=== PATIENT | female | born 1980 | race Hispanic/Latino ===

== ENCOUNTER 2017-05-01 03:17 | Observation (INO) | payer BC ==
[2017-05-01 03:28] VITALS: BMI 21.4
[2017-05-01] MEDS: Sodium Chloride 0.9% 1,000 ML IV SCH ×4 (03:43→11:39)
--- NOTE | 2017-05-01 03:47 | ED PDOC ---
HPI: Abdomen Time Seen by Provider: 05/01/17 03:28 Chief Complaint (Nursing): Abdominal Pain Chief Complaint (Provider): Abdominal Pain History Per: Patient History/Exam Limitations: no limitations Onset/Duration Of Symptoms: Hrs (x3) Current Symptoms Are (Timing): Still Present Additional Complaint(s): 36 year old female with previous medical history of kidney stones, who presents to the emergency department with a complaint of left-sided flank pain radiating to left-sided abdomen associated with nausea ongoing since midnight. Denied any fever, chills, vomiting, difficulty urinating or bloody urine. Patient reported last episode of kidney stones were 1 1/2 years ago. PMD: none provided Past Medical History Reviewed: Historical Data, Nursing Documentation, Vital Signs Vital Signs: Last Vital Signs Temp 98.3 F 05/01/17 03:28 Pulse 80 05/01/17 03:28 Resp 18 05/01/17 03:28 BP 149/90 05/01/17 03:28 Pulse Ox 100 05/01/17 05:38 - Medical History PMH: Kidney Stones - Surgical History Surgical History: Hernia Repair Denies: No Surg Hx - Family History Family History: States: Unknown Family Hx - Social History Current smoker - smoking cessation education provided: No Alcohol: None Drugs: Denies - Allergies Allergies/Adverse Reactions: Allergies Allergy/AdvReac Type Severity Reaction Status Date / Time amoxicillin Allergy Intermediate ITCHING Verified 05/01/17 03:58 Review of Systems ROS Statement: Except As Marked, All Systems Reviewed And Found Negative Constitutional: Negative for: Fever, Chills Gastrointestinal: Positive for: Nausea, Abdominal Pain (left-sided). Negative for: Vomiting, Diarrhea Genitourinary Female: Negative for: Dysuria, Hematuria Musculoskeletal: Positive for: Back Pain (left flank) Physical Exam - Reviewed Nursing Documentation Reviewed: Yes Vital Signs Reviewed: Yes - Physical Exam Appears: Positive for: In Acute Distress (moderate). Negative for: No Acute Distress Head Exam: Positive for: ATRAUMATIC, NORMAL INSPECTION, NORMOCEPHALIC Skin: Positive for: Normal Color Eye Exam: Positive for: Normal appearance ENT: Positive for: Normal ENT Inspection Neck: Positive for: Normal, Painless ROM Cardiovascular/Chest: Positive for: Regular Rate, Rhythm, Chest Non Tender Respiratory: Positive for: Normal Breath Sounds, Decreased Breath Sounds. Negative for: Wheezing, Respiratory Distress Gastrointestinal/Abdominal: Positive for: Tenderness (left upper and lower quadrants moderately). Negative for: Normal Exam Back: Positive for: L CVA Tenderness. Negative for: Normal Inspection, R CVA Tenderness Extremity: Positive for: Normal ROM (upper/lower). Negative for: Pedal Edema ( bilateral), Calf Tenderness (bilateral) Neurologic/Psych: Positive for: Alert (x3), Oriented - Laboratory Results Result Diagrams: 05/01/17 03:53 05/01/17 03:53 - ECG O2 Sat by Pulse Oximetry: 100 (RA) Pulse Ox Interpretation: Normal Medical Decision Making Medical Decision Making: Initial Impression: Flank pain; Abdominal pain Initial Plan: * CT ABD/pelvis without contrast * CMP * Lipase * Urine * CBC * NS 1,000ml IV per 1,000mls/hr * Toradol 30mg IVP * Zofran inj 4mg PO * Urine culture * Urine * Urinalysis ____ Lab results reviewed : wbc 16.7, CMP wnl, UA still pending. Patient reports no improvement of symptoms after being given toradol IV. Morphine 4 mg IV ordered. Patient sent to CT. Time: 448 --CT ABD/pelvis FINDINGS: Lower thorax: Small hiatal hernia. ABDOMEN: Liver: Unremarkable. Gallbladder and bile ducts: Unremarkable. No calcified stones. No ductal dilation. Pancreas: Unremarkable. No ductal dilation. Spleen: Unremarkable. No splenomegaly. Adrenals: Unremarkable. No mass. Kidneys and ureters: Left-sided hydronephrosis and hydroureter is identified ending into the pelvis to a 5 mm calculus at the junction of the ureter and UVJ seen on image 80, causing obstruction. Stomach and bowel: Unremarkable. No obstruction. No mucosal thickening. Appendix: No findings to suggest acute appendicitis. PELVIS: Bladder: Unremarkable. No stones. Reproductive: Unremarkable as visualized. ABDOMEN and PELVIS: Intraperitoneal space: Sliver of free fluid in the pelvis is probably physiologic. No free air. Bones/joints: No acute fracture. No dislocation. Soft tissues: Unremarkable. Vasculature: Unremarkable. No abdominal aortic aneurysm. Lymph nodes: Unremarkable. No enlarged lymph nodes. IMPRESSION: Left-sided hydronephrosis and hydroureter is identified ending into the pelvis to a 5 mm calculus at the junction of the ureter and UVJ seen on image 80, causing obstruction Patient returned from CT, results still pending. Patient reports that her pain is recurring, she is in moderate painful distress. Given another dose of morphine 4 mg IV and zofran 4 mg IV. Diagnostic results d/w the patient and her significant other in great detail. Diagnosis of renal colic with obstruction d/w the patient. Patient given flomax PO. Based on history, exam and diagnostic results, plan will be for further inpatient treatment. Case d/w Dr. Gauthier, agrees with inpt admission under the hospitalist and to keep the patient NPO, he will see her this AM. Case d/w Dr. Mooney the hospitalist , will admit the patient. Patient and her significant other agrees with and understand further plan of care. I have given the patient opportunity to ask any additional questions. Scribe Attestation: Documented by Melissa Stauffer, acting as a scribe for Anais Urbina PA-C. Provider Scribe Attestation: All medical record entries made by the Scribe were at my direction and personally dictated by me. I have reviewed the chart and agree that the record accurately reflects my personal performance of the history, physical exam, medical decision making, and the department course for this patient. I have also personally directed, reviewed, and agree with the discharge instructions and disposition. Disposition - Clinical Impression Clinical Impression: Renal colic on left side, Obstructive uropathy - Patient ED Disposition Is Patient to be Admitted: Yes Counseled Patient/Family Regarding: Studies Performed, Diagnosis - Disposition Disposition Time: 05:07 Condition: STABLE Forms: [facility] (Macedonian) - Pt Status Changed To: Hospital Disposition Of: Inpatient (.) - Admit Certification Admit to Inpatient:: After my assessment, the patient will require hospitalization for at least two midnights. This is because of the severity of symptoms shown, intensity of services needed, and/or the medical risk in this patient being treated as an outpatient.
[2017-05-01 03:57] LABS: BASO % 0.3 % (0.0-2.0); EOS % 0.3 % (0.0-4.0); LYMPH # 1.7 K/uL (1.0-4.3); LYMPH % 9.9 % (20.0-40.0); MEAN CELL VOLUME 89.7 fl (81.0-99.0); MEAN CORPUSCULAR HEMOGLOBIN 31.4 pg (27.0-31.0); MEAN PLATELET VOLUME 8.1 fl (7.2-11.7); MONO # 0.7 K/uL (0.0-0.8); MONO % 4.4 % (0.0-10.0); NEUT # 14.2 K/uL (1.8-7.0); NEUT % 85.1 % (50.0-75.0); NRBC % 0.1 % (0.0-0.0); PLATELET COUNT 207 K/uL (130-400); RBC 4.47 Mil/uL (3.80-5.20); RED CELL DISTRIBUTION WIDTH 11.9 % (11.5-14.5); WHITE BLOOD COUNT 16.7 K/uL (4.8-10.8)
[2017-05-01] MEDS ORDERED: Morphine 4 MG/ML VIAL ONE ×3 (04:04→08:08)
[2017-05-01] MEDS ORDERED: Morphine 4 MG/ML VIAL IVP ONE ×2 (04:04→05:00)
[2017-05-01 04:05] LABS: ALB/GLOB RATIO 1.3 (1.0-2.1); ALBUMIN 4.1 g/dL (3.5-5.0); ALT/SGPT 26 U/L (9-52); AST/SGOT 25 U/L (14-36); BLOOD UREA NITROGEN 19 mg/dl (7-17); CALCIUM 9.2 mg/dL (8.4-10.2); GFR AFRICAN-AMERICAN > 60; GFR NON-AFRICAN AMERICAN > 60; LIPASE 118 U/L (23-300)
[2017-05-01 04:32] LABS: EOSINOPHIL 1 % (0-7); LYMPHOCYTE 9 % (20-50); MONOCYTE 3 % (0-10); NEUTROPHIL 85 % (42-75); PLATELET ESTIMATE NORMAL (NORMAL); REACTIVE LYMPHOCYTES 2 % (0-0); TOTAL CELLS COUNTED 100
[2017-05-01 04:33] LABS: ANISOCYTOSIS SLIGHT; OVALOCYTES SLIGHT; POIKILOCYTOSIS SLIGHT
[2017-05-01 05:41] LABS: SQUAMOUS EPITHIAL 2 /hpf (0-5); URINE BACTERIA RARE (<OCC); URINE BILIRUBIN NEGATIVE (NEGATIVE); URINE BLOOD SMALL (NEGATIVE); URINE CLARITY SLIGHTY-CLOUDY (Clear); URINE COLOR STRAW (YELLOW); URINE GLUCOSE (UA) NEG (Normal); URINE LEUKOCYTE ESTERASE NEG Leu/uL (Negative); URINE NITRATE NEGATIVE (NEGATIVE); URINE PROTEIN NEGATIVE (NEGATIVE); URINE UROBILINOGEN 0.2-1.0 mg/dL (0.2-1.0)
[2017-05-01] MEDS ORDERED: Sodium Chloride 0.9% 1,000 ML IV SCH ×2 (06:00→11:41)
--- NOTE | 2017-05-01 06:08 | CP.PCM.HP ---
History of Present Illness - History of Present Illness History of Present Illness: CC: L flank pain HPI: This is a 36 y/o female with MHx of nephrolithiasis in the past who presented to the ER with c/o L sided flank pain with acute onset in the middle of the night. Pain radiated to L abdomen, and was accompanied by nausea. Patient denied f/c/v/d. Patient denies dysuria or hematuria. Nothing made symptoms better or worse. Last kidney stone was about 1.5 years ago. ROS: 14 systems reviewed, negative other than HPI MHx: Nephrolithiasis SHx: Hernia surgery Allergies: Amoxicillin Medications: None Family Hx: Reviewed, father with multiple kidney stones in the past Social Hx: Visiting from out of town, no tobacco, no EtOH Present on Admission - Present on Admission Any Indicators Present on Admission: No Past Patient History - Past Social History Alcohol: None Drugs: Denies - RENAL Hx Kidney Stones: Yes - MUSCULOSKELETAL/RHEUMATOLOGICAL Hx Back Pain: Yes - PSYCHIATRIC Hx Anxiety: Yes Hx Substance Use: No - SURGICAL HISTORY Hx Herniorrhaphy: Yes - ANESTHESIA Hx Anesthesia: Yes Meds Allergies/Adverse Reactions: Allergies Allergy/AdvReac Type Severity Reaction Status Date / Time amoxicillin Allergy Intermediate ITCHING Verified 05/01/17 03:58 Physical Exam - Constitutional Appears: No Acute Distress - Head Exam Head Exam: ATRAUMATIC, NORMOCEPHALIC - Eye Exam Eye Exam: EOMI, PERRL - ENT Exam ENT Exam: Mucous Membranes Moist - Neck Exam Neck exam: Positive for: Full Rom - Respiratory Exam Respiratory Exam: Clear to Auscultation Bilateral, NORMAL BREATHING PATTERN - Cardiovascular Exam Cardiovascular Exam: REGULAR RHYTHM, +S1, +S2 - GI/Abdominal Exam GI & Abdominal Exam: Normal Bowel Sounds, Soft - Extremities Exam Extremities exam: Positive for: full ROM, normal inspection - Back Exam Back exam: CVA tenderness (L) - Neurological Exam Neurological exam: Alert, CN II-XII Intact, Oriented x3 - Psychiatric Exam Psychiatric exam: Normal Affect, Normal Mood - Skin Skin Exam: Dry, Warm Results - Vital Signs Recent Vital Signs: Last Vital Signs Temp 98.3 F 05/01/17 03:28 Pulse 80 05/01/17 03:28 Resp 18 05/01/17 03:28 BP 149/90 05/01/17 03:28 Pulse Ox 100 05/01/17 06:01 - Labs Result Diagrams: 05/01/17 03:53 05/01/17 03:53 Labs: Laboratory Results - last 24 hr 05/01/17 05/01/17 05/01/17 03:53 03:53 05:30 WBC 16.7 H RBC 4.47 Hgb 14.0 Hct 40.1 MCV 89.7 MCH 31.4 H MCHC 35.0 RDW 11.9 Plt Count 207 MPV 8.1 Neut % (Auto) 85.1 H Lymph % (Auto) 9.9 L [place] % (Auto) 4.4 Eos % (Auto) 0.3 Baso % (Auto) 0.3 Neut # 14.2 H Lymph # 1.7 [place] # 0.7 Eos # 0.0 Baso # 0.0 Neutrophils % (Manual) 85 H Lymphocytes % (Manual) 9 L Reactive Lymphs % 2 H Monocytes % (Manual) 3 Eosinophils % (Manual) 1 Platelet Estimate Normal Poikilocytosis (manual Slight Anisocytosis (manual) Slight Ovalocytes Slight Sodium 141 Potassium 3.4 L Chloride 104 Carbon Dioxide 28 Anion Gap 12 BUN 19 H Creatinine 1.0 Est GFR ( Amer) > 60 Est GFR (Non-Af Amer) > 60 Random Glucose 123 H Calcium 9.2 Total Bilirubin 0.5 AST 25 ALT 26 Alkaline Phosphatase 60 Total Protein 7.1 Albumin 4.1 Globulin 3.0 Albumin/Globulin Ratio 1.3 Lipase 118 Urine Color Straw Urine Clarity Slighty-cloudy Urine pH 7.0 Ur Specific [place] 1.013 Urine Protein Negative Urine Glucose (UA) Neg Urine Ketones 20 Urine Blood Small Urine Nitrate Negative Urine Bilirubin Negative Urine Urobilinogen 0.2-1.0 Ur Leukocyte Esterase Neg Urine RBC (Auto) 10 H Urine Microscopic WBC 1 Ur Squamous Epith Cells 2 Urine Bacteria Rare - Imaging and Cardiology CT scan - abdomen Status: Image reviewed by me (L nephrolithiasis with hydroneph/hydroureter), Report reviewed by me Assessment & Plan (1) Obstructive uropathy Assessment and Plan: 36 y/o female with nephrolithiasis/urinary tract obstruction. -NPO, IVF -Pain mgmt per scale with Toradol/Morphine IV -Zofran IV for n/v -Flomax 0.4 daily -Consult with Urology (Abrahan) for possible procedure this AM -Replete K -SCDs for DVT PPx Status: Acute (2) Renal colic on left side Status: Acute (3) DVT prophylaxis Status: Acute
[2017-05-01] MEDS ORDERED: KCL 40MEQ/NS 1L 1,000 ML IV SCH (06:12)
[2017-05-01] MEDS: Morphine 4 MG/ML VIAL IVP PRN ×3 (08:14→22:00)
--- NOTE | 2017-05-01 11:02 | CT ---
PROCEDURE: CT Abdomen and Pelvis without intravenous contrast HISTORY: L flank pain COMPARISON: None. TECHNIQUE: Technique. Unenhanced study. Neither oral nor intravenous contrast administered. Radiation dose: Total exam DLP = 343.17 mGy-cm. This CT exam was performed using one or more of the following dose reduction techniques: Automated exposure control, adjustment of the mA and/or kV according to patient size, and/or use of iterative reconstruction technique. FINDINGS: LOWER THORAX: Unremarkable. LIVER: Unremarkable. No gross lesion or ductal dilatation. GALLBLADDER AND BILE DUCTS: Unremarkable. PANCREAS: Unremarkable. No gross lesion or ductal dilatation. SPLEEN: Unremarkable. ADRENALS: Unremarkable. No mass. KIDNEYS AND URETERS: Left kidney: Distended collecting system including left ureter. The left kidney is edematous, trace perinephric fluid identified. No visible upper tract calculi. Right kidney in ureter: Unremarkable VASCULATURE: Unremarkable. No aortic aneurysm. BOWEL: Constipation without fecal impaction or obstruction. APPENDIX: Unremarkable. Normal appendix. PERITONEUM: Unremarkable. No free fluid. No free air. LYMPH NODES: Unremarkable. No enlarged lymph nodes. BLADDER: Unremarkable.3.5 mm calculus in the urinary bladder adjacent to the right ureterovesical junction consistent with recently passed calculus. REPRODUCTIVE: Unremarkable. BONES: No acute fracture. OTHER FINDINGS: None. IMPRESSION: Recently passed calculus 3.5 mm now residing in the urinary bladder adjacent to the left ureterovesical junction. Left hydronephrosis, hydroureter noted. Concordant results (preliminary interpretation) provided by [employer] Procedure Completed: 04:30 Preliminary ([employer]Rad) Report: Dictated and Authenticated: 04:49 Final Interpretation: 11:00
[2017-05-01] MEDS ORDERED: cefTRIAXone IV 1 gm in Dextros 0 ML IVPB ONE (14:53)
[2017-05-01] MEDS ORDERED: Lidocaine 2% Jelly (Uro-Jet) ONE (14:54)
[2017-05-01] MEDS ORDERED: Propofol 10 mg/ml Inj (20 ML) ONE (14:55)
[2017-05-01] MEDS ORDERED: Iohexol 300 100 ML IJ ONE (14:55)
[2017-05-01] MEDS ORDERED: Midazolam 2 MG/2 ML VIAL ONE (14:56)
[2017-05-01] MEDS ORDERED: Lactated Ringer's 1,000 ML IV ONE (15:40)
[2017-05-01] MEDS ORDERED: Gentamicin 80 mg/2mL Inj. IVPB ONE (15:45)
[2017-05-01] MEDS ORDERED: Gentamicin 80mg/50ml NS 80 MG/50 ML BAG IVPB ONE ×2 (15:48→15:50)
--- NOTE | 2017-05-01 16:10 | PCM.SURG1 ---
Surgeon's Initial Post Op Note - Surgeon's Notes Surgeon: Abrahan Quality Control Associate: THOMAS Type of Anesthesia: General LMA Anesthesia Administered By: staff Pre-Operative Diagnosis: Left ureteral calculi/Hydronephrosis Operative Findings: left ureteral calculi @ ureteral orifice Post-Operative Diagnosis: same Operation Performed: cysto insertion of stent Specimen/Specimens Removed: na Estimated Blood Loss: EBL {In ML}: 0 Blood Products Given: N/A Drains Used: No Drains Post-Op Condition: Good Date of Surgery/Procedure: 05/01/17 Time of Surgery/Procedure: 16:11
[2017-05-01] MEDS ORDERED: HYDROmorphone 0.5 mg/0.5 ml ISec IVP PRN (16:22)
[2017-05-01] MEDS ORDERED: Dexamethasone 4 mg/1 ml IVP PRN (16:22)
--- NOTE | 2017-05-02 02:03 | OP ---
PROCEDURE DATE: 05/01/2017 PREOPERATIVE DIAGNOSES: Left renal colic and left ureterovesical junction calculi. POSTOPERATIVE DIAGNOSES: Left renal colic and left ureterovesical junction calculi. PROCEDURES: Cystoscopy, insertion of stent. DESCRIPTION OF PROCEDURE: The procedure is as follows: Prior to the procedure, detailed informed consent was obtained from the patient. The x-ray films and reports were reviewed and the patient's history of having significant pain after the CAT scan was done, indicating that the stone was still present. The patient agreed to proceed with the procedure. She was brought into the room and a timeout was taken according to the rules and regulations of [facility]. She was given prophylactic gentamicin, draped and prepped in the usual manner and cystoscoped with a #21 Storz panendoscope. The bladder was entered atraumatically. The stone could be seen in the intramural tunnel on the left. A guidewire was passed into the tunnel and then manipulated above the stone under fluoroscopic control. The 6-Malaysian variable length stent was then passed over the guidewire and positioned in the renal pelvis properly with the distal end left in the bladder. The stent was deployed. The patient tolerated the procedure well. She will be sent to the recovery room in good condition. Prior to the procedure, she was advised that she had a stent in place that must be removed within 30 days. She is aware of the risks of leaving the stent in place for long periods of time. We suggested she return to our office tomorrow for evaluation for stent removal and the patient understood these instructions. Pawel Gauthier MD
[2017-05-02 05:50] VITALS: RESP 18
[2017-05-02 06:27] LABS: BLOOD UREA NITROGEN 8 mg/dl (7-17); CALCIUM 8.1 mg/dL (8.4-10.2); GFR AFRICAN-AMERICAN > 60; GFR NON-AFRICAN AMERICAN > 60
[2017-05-02 06:45] LABS: BASO % 0.5 % (0.0-2.0); EOS # 0.1 K/uL (0.0-0.7); EOS % 1.7 % (0.0-4.0); HEMOGLOBIN 12.2 g/dL (12.0-16.0); LYMPH % 36.4 % (20.0-40.0); MEAN CORPUSCULAR HEMOGLOBIN 31.2 pg (27.0-31.0); MEAN CORPUSCULAR HGB CONC 33.9 g/dL (33.0-37.0); MEAN PLATELET VOLUME 8.4 fl (7.2-11.7); MONO # 0.5 K/uL (0.0-0.8); MONO % 5.8 % (0.0-10.0); NEUT # 4.6 K/uL (1.8-7.0); NEUT % 55.6 % (50.0-75.0); NRBC % 0.1 % (0.0-0.0); RBC 3.92 Mil/uL (3.80-5.20); RED CELL DISTRIBUTION WIDTH 12.1 % (11.5-14.5); WHITE BLOOD COUNT 8.3 K/uL (4.8-10.8)
[2017-05-02 06:55] LABS: MEAN CELL VOLUME 92.1 fl (81.0-99.0)
--- NOTE | 2017-05-02 07:04 | CON ---
DATE: 05/01/2017 CONSULTATION REPORT CHIEF COMPLAINT: Left flank pain. HISTORY OF PRESENT ILLNESS: The patient was admitted to the [facility] ER approximately 5 a.m. this morning with severe left flank pain. She underwent CAT scan of the abdomen and pelvis, which showed stone possibly in the UVJ, possibly at the left bladder. The patient continued to have significant pain and discomfort despite taking morphine. She has a history of having renal calculi in the past which she spontaneously passed. She also has been complaining of nauseousness and vomiting at home. REVIEW OF SYSTEMS: RESPIRATORY SYSTEM: Noncontributory. GASTROINTESTINAL SYSTEM: The patient has had nauseousness and vomiting only since she had been having the pain. GENITOURINARY: The patient had a history of prior renal calculi, which passed spontaneously. She is complaining of left flank pain and left lower quadrant pain and need to urinate frequently. GYNECOLOGIC: The patient has no pertinent FAMILY CONSUMER SCIENCE [employer]CS TEACHER history. ORTHOPEDIC: The patient has no pertinent orthopedic history. SOCIAL HISTORY: The patient lives in [place]. She is from her . Further history is noncontributory. PHYSICAL EXAMINATION: VITAL SIGNS: Within normal limits. HEAD, EARS, EYES, NOSE, AND THROAT: Within normal limits. NECK: Supple. There are no bruits or masses. LUNGS: Clear bilaterally. There are no rales or rhonchi. There are good breath sounds. BREASTS: Not examined at the patient's request. HEART: Normal sinus rhythm. ABDOMEN: Soft and nontender. There is slight CVA tenderness on the left. There is no anterior abdominal tenderness or guarding. VAGINAL EXAMINATION: The patient declined. EXTREMITIES: Normal. LABORATORY DATA: I have also reviewed the patient's CAT scan and lab report, which shows an elevated white count of 16.7. Urinalysis shows 10 red cells per high power field. She also had a CAT scan of the abdomen and pelvis, which shows a stone at the left ureterovesical junctions. It is not clear whether it is in the bladder or still in the ureter; however, since the patient is still having pain, it is most likely in the ureter. IMPRESSION: My impression is left ureteral calculi with colic. After discussing with the patient the various options, the patient wished to proceed with cystoscopy and stent insertion. She is aware of the risks and complications and alternative ways of managing this stone and she has agreed to proceed with the procedure. The decision for surgery was made at this consultation. Pawel Gauthier MD
[2017-05-02 08:04] VITALS: BP 121/72; PULSE 78; TEMP 98.4; O2SAT 98
[2017-05-02] MEDS: Morphine 4 MG/ML VIAL IVP PRN ×2 (08:34→12:34)
[2017-05-02] MEDS ORDERED: Ciprofloxacin 400mg/200ml D5W 400 MG/200 ML BAG IVPB SCH (09:00)
--- NOTE | 2017-05-02 10:50 | RAD ---
PROCEDURE: Intraoperative Fluoroscopy. HISTORY: CYSTO FINDINGS: Fluoroscopic assistance was provided for cystogram and stent placement. Please refer to the operative report from
--- NOTE | 2017-05-02 12:32 | RAD ---
HISTORY: evaluate stone COMPARISON: CT scan of the abdomen and pelvis dated 05/01/2017 FINDINGS: BOWEL: Normal. No obstruction. No free air. BONES: Normal. OTHER FINDINGS: Interval placement of left double-J ureteral stent. No definite genitourinary calculus is identified. IMPRESSION: Interval placement of left double-J ureteral stent. No definite genitourinary calculus is identified.
--- NOTE | 2017-05-02 12:56 | CP.PCM.DIS ---
Provider - Provider Date of Admission: 05/01/17 05:57 Attending physician: Ronda Mooney MD Consults: Urology : Dr Gauthier Time Spent in preparation of Discharge (in minutes): 25 Diagnosis - Discharge Diagnosis (1) Obstructive uropathy Status: Acute (2) Renal colic on left side Status: Acute (3) Ureteral stone with hydronephrosis Status: Acute Hospital Course - Lab Results Lab Results: Micro Results 05/01/17 06:34 Urine,Clean Catch Urine Culture - Final No Growth (<1,000 CFU/ML) Most Recent Lab Values WBC 8.3 K/uL (4.8-10.8) D 05/02/17 05:45 RBC 3.92 Mil/uL (3.80-5.20) 05/02/17 05:45 Hgb 12.2 g/dL (12.0-16.0) 05/02/17 05:45 Hct 36.1 % (34.0-47.0) 05/02/17 05:45 MCV 92.1 fl (81.0-99.0) D 05/02/17 05:45 MCH 31.2 pg (27.0-31.0) H 05/02/17 05:45 MCHC 33.9 g/dL (33.0-37.0) 05/02/17 05:45 RDW 12.1 % (11.5-14.5) 05/02/17 05:45 Plt Count 190 K/uL (130-400) 05/02/17 05:45 MPV 8.4 fl (7.2-11.7) 05/02/17 05:45 Neut % (Auto) 55.6 % (50.0-75.0) 05/02/17 05:45 Lymph % (Auto) 36.4 % (20.0-40.0) 05/02/17 05:45 [place] % (Auto) 5.8 % (0.0-10.0) 05/02/17 05:45 Eos % (Auto) 1.7 % (0.0-4.0) 05/02/17 05:45 Baso % (Auto) 0.5 % (0.0-2.0) 05/02/17 05:45 Neut # 4.6 K/uL (1.8-7.0) 05/02/17 05:45 Lymph # 3.0 K/uL (1.0-4.3) 05/02/17 05:45 Wells # 0.5 K/uL (0.0-0.8) 05/02/17 05:45 Eos # 0.1 K/uL (0.0-0.7) 05/02/17 05:45 Baso # 0.0 K/uL (0.0-0.2) 05/02/17 05:45 Neutrophils % (Manual) 85 % (42-75) H 05/01/17 03:53 Lymphocytes % (Manual) 9 % (20-50) L 05/01/17 03:53 Reactive Lymphs % 2 % (0-0) H 05/01/17 03:53 Monocytes % (Manual) 3 % (0-10) 05/01/17 03:53 Eosinophils % (Manual) 1 % (0-7) 05/01/17 03:53 Platelet Estimate Normal (NORMAL) 05/01/17 03:53 Poikilocytosis (manual Slight 05/01/17 03:53 Anisocytosis (manual) Slight 05/01/17 03:53 Ovalocytes Slight 05/01/17 03:53 Sodium 143 mmol/l (132-148) 05/02/17 05:45 Potassium 3.6 MMOL/L (3.6-5.0) 05/02/17 05:45 Chloride 110 mmol/L (98-107) H 05/02/17 05:45 Carbon Dioxide 25 mmol/L (22-30) 05/02/17 05:45 Anion Gap 12 (10-20) 05/02/17 05:45 BUN 8 mg/dl (7-17) 05/02/17 05:45 Creatinine 0.7 mg/dl (0.7-1.2) 05/02/17 05:45 Est GFR ( Amer) > 60 05/02/17 05:45 Est GFR (Non-Af Amer) > 60 05/02/17 05:45 Random Glucose 90 mg/dL (65-105) 05/02/17 05:45 Calcium 8.1 mg/dL (8.4-10.2) L 05/02/17 05:45 Total Bilirubin 0.5 mg/dl (0.2-1.3) 05/01/17 03:53 AST 25 U/L (14-36) 05/01/17 03:53 ALT 26 U/L (9-52) 05/01/17 03:53 Alkaline Phosphatase 60 U/L (38-126) 05/01/17 03:53 Total Protein 7.1 G/DL (6.3-8.2) 05/01/17 03:53 Albumin 4.1 g/dL (3.5-5.0) 05/01/17 03:53 Globulin 3.0 gm/dL (2.2-3.9) 05/01/17 03:53 Albumin/Globulin Ratio 1.3 (1.0-2.1) 05/01/17 03:53 Lipase 118 U/L (23-300) 05/01/17 03:53 Urine Color Straw (YELLOW) 05/01/17 05:30 Urine Clarity Slighty-cloudy (Clear) 05/01/17 05:30 Urine pH 7.0 (5.0-8.0) 05/01/17 05:30 Ur Specific [place] 1.013 (1.003-1.030) 05/01/17 05:30 Urine Protein Negative mg/dL (NEGATIVE) 05/01/17 05:30 Urine Glucose (UA) Neg mg/dL (Normal) 05/01/17 05:30 Urine Ketones 20 mg/dL (NEGATIVE) 05/01/17 05:30 Urine Blood Small (NEGATIVE) 05/01/17 05:30 Urine Nitrate Negative (NEGATIVE) 05/01/17 05:30 Urine Bilirubin Negative (NEGATIVE) 05/01/17 05:30 Urine Urobilinogen 0.2-1.0 mg/dL (0.2-1.0) 05/01/17 05:30 Ur Leukocyte Esterase Neg Jeffrey/uL (Negative) 05/01/17 05:30 Urine RBC (Auto) 10 /hpf (0-3) H 05/01/17 05:30 Urine Microscopic WBC 1 /hpf (0-5) 05/01/17 05:30 Ur Squamous Epith Cells 2 /hpf (0-5) 05/01/17 05:30 Urine Bacteria Rare (<OCC) 05/01/17 05:30 - Hospital Course Hospital Course: 36 y/o female with MHx of nephrolithiasis in the past who presented to the ER with L sided flank pain with acute onset in the middle of the night. Pain radiated to L abdomen, and was accompanied by nausea. Patient denied f/c/v/d. Patient denies dysuria or hematuria. Nothing made symptoms better or worse. Last kidney stone was about 1.[address] of the abd : 3.5 mm stone with left hydroureter and hydronephrosis (1) Obstructive uropathy sec to Ureteral Stone with Hydronephrosis s/p Cystoscopy with Stent Ureteral Placement -IVF hydration -Pain mgmt per scale with Toradol/Morphine IV -Zofran IV for n/v -Flomax 0.4 daily -Consult with Urology Dr Gauthier - pt underwent Cystoscopy with stent placement - Pt is scheduled to fly back to [place] this afternoon . Discussed with pt need to ff up with Urology nakia in [place] and importance of stent removal. (2) Leukocytosis ? reactive Status: Acute empirically started IV Cipro (3) DVT prophylaxis Status: Acute SCD Discharge Exam - Head Exam Head Exam: ATRAUMATIC, NORMAL INSPECTION, NORMOCEPHALIC - Eye Exam Eye Exam: EOMI, Normal appearance, PERRL Pupil Exam: NORMAL ACCOMODATION - ENT Exam ENT Exam: Mucous Membranes Moist, Normal External Ear Exam - Neck Exam Neck exam: Full Rom - Respiratory Exam Respiratory Exam: NORMAL BREATHING PATTERN. absent: Respiratory Distress - Cardiovascular Exam Cardiovascular Exam: REGULAR RHYTHM, +S1, +S2 - GI/Abdominal Exam GI & Abdominal Exam: Normal Bowel Sounds, Soft, Tenderness - Extremities Exam Extremities exam: full ROM, normal capillary refill, pedal pulses present - Back Exam Back exam: CVA tenderness (L), FULL ROM. absent: CVA tenderness (R), vertebral tenderness - Neurological Exam Neurological exam: Alert, CN II-XII Intact, Normal Gait, Oriented x3, Reflexes Normal - Psychiatric Exam Psychiatric exam: Normal Affect, Normal Mood - Skin Skin Exam: Dry, Normal Color, Warm Discharge Plan - Discharge Medications Prescriptions: Ciprofloxacin HCl [Cipro] 500 mg PO BID #10 tablet - Follow Up Plan Condition: GOOD Disposition: HOME/ ROUTINE Instructions: Kidney Stones (DC), Cystoscopy (DC) Additional Instructions: Follow-up with Urologist of choice nakia (in [place]) Ureteral stent needs to be removed iwithin 30 days ff up with PMD in [place] nakia Referrals: Pawel Gauthier Jr., MD [Staff Provider] -
== END 2017-05-02 13:26 | disposition home or self-care (01) ==
LOC: H.ER 03:17 → H.ERHOLD 05:57 → INTOOBSV 05:57 → H.MEDSURG1 08:34
PROVIDERS: ADMIT Internal Medicine; ATTEND Internal Medicine
DX: N13.2 Hydronephrosis with renal and ureteral calculous obstruction (principal); Z87.442 Personal history of urinary calculi; D72.829 Elevated white blood cell count, unspecified; Z88.0 Allergy status to penicillin
CPT/HCPCS: 36415; 52332; 74018; 74176; 80048; 80053; 81003; 81025; 83690; 85025; 87086; 96374; 96375; 96376; 99284; C2617; G0378; J0744; J1580; J1885; J2001; J2250; J2270; J2405; J2704; J2765; J3010; J7040; J7120